=== PATIENT | female | born 1980 | race Caucasian/White ===

== ENCOUNTER → 2021-09-14 11:40 | Outpatient (CLI) | payer OTHER, BC, SELFPAY ==
--- NOTE | ~2021-09-14 | US_ITS ---
EXAMINATION: US transvaginal DATE: 09/14/2021 12:10 INDICATION: Pelvic pain Comparison:No prior studies for comparison. TECHNIQUE: Multiple transabdominal and endovaginal sonographic images of the pelvis performed. FINDINGS: The uterus measures 6.8 x 4.9 x 5.4 cm. The endometrial complex measures 5 mm. The right ovary measures 1.6 x 0.9 x 1.8 cm and the left ovary measures 1.9 x 1.5 x 1.5 cm. There ar e small follicles in each ovary. Normal doppler signal in both ovaries. There is no free fluid in the pelvis. There are no abnormal masses seen on either side. IMPRESSION: 1. Unremarkable pelvic ultrasound. Reviewed, dictated and finalized at location A.
== END ==
PROVIDERS: PCP Physician Assistant; Visit Provider Nurse Practitioner
DX: R10.2 Pelvic and perineal pain (principal)
CPT/HCPCS: 76830

== ENCOUNTER → 2021-11-16 16:05 | Outpatient (CLI) | payer OTHER, BC, SELFPAY ==
--- NOTE | ~2021-11-16 | MM_ITS ---
EXAMINATION: MM screening [place] [facility] w keya HISTORY: Screening mammogram TECHNIQUE: Craniocaudal and mediolateral oblique 3-D tomosynthesis images were obtained and synthetic 2-D images were generated. CAD analysis was submitted and interpreted. COMPARISON: No prior mammogram is available for comparison at this institution. BREAST PARENCHYMAL COMPOSITION: There are scattered areas of fibroglandular density. FINDINGS: Benign-appearing posterior upper outer quadrant intramammary lymph nodes are noted bilatera lly. There is no evidence of suspicious mass, calcification, or architectural distortion to suggest m alignancy in either breast. There has been no suspicious interval change. IMPRESSION: 1. No mammographic evidence of malignancy. 2. Recommend routine screening mammography in one year. BI-RADS Category 2: Benign finding(s). Reviewed, dictated and finalized at location B.
== END ==
PROVIDERS: PCP Nurse Practitioner; Visit Provider Nurse Practitioner
DX: Z12.31 Encounter for screening mammogram for malignant neoplasm of breast (principal)
CPT/HCPCS: 77063; 77067

== ENCOUNTER 2024-05-15 09:20 | Emergency (ER) | payer OTHER, BC, SELFPAY ==
[2024-05-15 09:28] VITALS: BP 124/81; PULSE 91; RESP 16; TEMP 36.8; O2SAT 100
--- NOTE | 2024-05-15 09:28 | ED.URI ---
HPI - URI/Sore Throat General Chief Complaint: Upper Respiratory Infection Stated Complaint: Ears Irritation/Sinus Time Seen by Provider: 05/15/24 09:33 Source: patient, RN notes reviewed and old records reviewed Mode of arrival: ambulatory Limitations: no limitations History of Present Illness HPI Narrative: Patient presents with complaints of fever and sore throat. She reports that she has been feeling badly for about 5 days. She tested negative for COVID and flu at home at onset of symptoms, reports that she gets strep throat often and her primary sent out a Z-Ed for her which she has been taking with no improvement. She has been taking [id number] medications to treat her symptoms with moderate relief. She is able to manage own secretions, no drooling or stridor noted. She is not any obvious distress Related Data Home Medications ?Medication ?Instructions ?Recorded ?Confirmed ?Last Taken ?Type azithromycin 250 mg tablet mg 05/15/24 Unknown History ergocalciferol (vitamin D2) 1,250 05/15/24 Unknown History mcg (50,000 unit) capsule levothyroxine 25 mcg tablet mcg 05/15/24 Unknown History (Synthroid) semaglutide (weight loss) 2.4 mg subcut 05/15/24 Unknown History mg/0.75 mL subcutaneous pen injector (Wegovy) Allergies Allergy/AdvReac Type Severity Reaction Status Date / Time No Known Allergies Allergy Verified 05/15/24 09:26 Review of Systems Review of Systems: All systems reviewed & are unremarkable except as noted in HPI and below Constitutional: Constitutional: Reports no additional constitutional complaints, Reports fever(s) and Reports lethargy ENT: Reports system reviewed and no additional complaints, except as documented and Reports sore throat Cardiovascular: Cardiovascular: Reports no additional cardiovascular complaints Respiratory: Respiratory: Reports no additional respiratory complaints Gastrointestinal: Gastrointestinal: Reports no additional gastrointestinal complaints [facility] Family History Family History Other Family history of cardiovascular disease Social History Social History Smoking status: Never smoker Alcohol intake: never Comments At the time of my signature, I reviewed and agree with the nursing past medical, surgical, social, and family history. There is no relevant family history pertinent to the patient complaint. Exam Const: General: cooperative, no acute distress, alert and awake Orientation/consciousness: oriented to person, oriented to place and oriented to time HENMT: Head: normal to inspection Ears: TM's normal bilaterally Mouth: Yes moist mucous membranes Throat: posterior oropharynx normal Resp: Effort & Inspection: normal respiratory effort and able to speak in complete sentences Auscultation: clear to auscultation bilaterally, no crackles, no rales, no rhonchi and no wheezes Cardio: Palpation: normal PMI Rate: regular rate Rhythm: regular rhythm Heart sounds: S1 normal heart sound present and S2 normal heart sound present Neuro: General: oriented to person, oriented to place and oriented to time Cranial nerves: Yes CN's II-XII intact bilaterally Psych: Appearance: grossly normal Thought process: Normal thought process present Insight: Good insight present (Psych) Judgement: Good judgement present (Psych) Course Course Level of Care: Express Care Visit Vital Signs Vital signs: Reviewed MDM - URI/Sore Throat MDM Narrative Medical decision making narrative: Negative COVID, negative strep, positive influenza. Patient counseled on supportive care measures, work note provided. Nontoxic appearing patient, reassuring physical exam. Discharge instructions reviewed with patient, as well as provided in writing per nursing staff. The instructions also include specific and strict return/GO TO THE ER as well as f/u information. All questions have been answered, and the patient deny any further questions with discharge and discharge plan. Some parts of this dictation were generated by voice recognition software and may contain typographical and/or grammatical inaccuracies. Differential Diagnosis Differential diagnosis: Likely upper respiratory infection, otitis media, viral infection, influenza and pharyngitis Medical Records Attestation: I reviewed the patient's medical records. Lab Data Attestation: I reviewed the patient's lab results. Discharge Plan Discharge Clinical Impression: Influenza Patient Disposition: Home, Self-Care Condition: Stable Instructions: Antibiotic Form, Influenza (ED) Additional Instructions: Use [id number] medications to treat symptoms. Follow package instructions. Follow-up with primary care provider. Emergency department for new or worsening symptoms Patient Language: Vietnamese Prescriptions: No Action azithromycin 250 mg tablet levothyroxine [Synthroid] 25 mcg tablet ergocalciferol (vitamin D2) 1,250 mcg (50,000 unit) capsule Wegovy 2.4 mg/0.75 mL pen injector SUBCUT Follow-up/Referrals: Stacey,JENELLE Cleaning [Primary Care Provider] - 1 Week Stand Alone Forms: Work/School Release IP Time of Disposition: 09:48
[2024-05-15 09:30] VITALS: PULSE 91; RESP 16; O2SAT 100
[2024-05-15 09:52] LABS: EDCOVIDSCREEN Negative (Negative); EDINFLUASCREEN Positive (Negative); EDINFLUBSCREEN Negative (Negative); EDSTREPNEGPOS1 Negative (Negative)
== END 2024-05-15 09:55 | disposition home or self-care (01) ==
PROVIDERS: Emergency Provider Nurse Practitioner Family; PCP Nurse Practitioner
DX: J10.1 Influenza due to other identified influenza virus with other respiratory manifestations (principal); Z20.822 Contact with and (suspected) exposure to COVID-19
CPT/HCPCS: 87081; 87426; 87804; 87880; 99203; G0463